=== PATIENT | female | born 1995 | race American Indian/Alaskan Native ===

== ENCOUNTER 2017-09-05 09:25 | Emergency (ER) | payer OTHER ==
[2017-09-05 09:31] VITALS: BP 111/75; RESP 16; TEMP 98.1; BMI 28.1
--- NOTE | 2017-09-05 09:40 | ED PDOC ---
Arrival/HPI - General Chief Complaint: ENT Problem Time Seen by Provider: 09/05/17 09:39 Historian: Patient - History of Present Illness Narrative History of Present Illness (Text): 09/05/17 09:39 This 21 yo female who denies pmh, presents to this ED c/o right ear pain, sore throat, and nasal congestion x 1 day. Patient denies recent travel, sick contact, abdominal pain, cough, sob, hemoptysis, n/v, fever, skin rash, or abnormal gait. Time/Duration: Other (see hpi) Context: Home Past Medical History - Provider Review Nursing Documentation Reviewed: Yes - Psychiatric Hx Substance Use: No - Surgical History Other/Comment: right wrist Family/Social History - Physician Review Nursing Documentation Reviewed: Yes Family/Social History: Other (noncontributory) Smoking Status: Never Smoked Hx Alcohol Use: No Hx Substance Use: No Allergies/Home Meds Allergies/Adverse Reactions: Allergies almond Allergy (Verified 09/05/17 09:32) ITCHING carrot Allergy (Verified 09/05/17 09:32) ITCHING celery Allergy (Verified 09/05/17 09:32) ITCHING Review of Systems - Review of Systems Constitutional: Normal. absent: Fatigue, Weight Change, Fevers, Night Sweats Eyes: Normal ENT: Sore Throat, Rhinorrhea, Other (right ear pain) Respiratory: Normal. absent: SOB, Cough, Sputum, Wheezing Cardiovascular: Normal Gastrointestinal: Normal Genitourinary Female: Normal Musculoskeletal: Normal Skin: Normal Neurological: Normal Endocrine: Normal Hemo/Lymphatic: Normal Psychiatric: Normal Physical Exam Vital Signs Temp Pulse Resp BP Pulse Ox 09/05/17 09:28 98.1 F 86 16 111/75 97 Temperature: Afebrile Blood Pressure: Normal Pulse: Regular Respiratory Rate: Normal Appearance: Positive for: Well-Appearing, Non-Toxic, Comfortable Pain Distress: None Mental Status: Positive for: Alert and Oriented X 3 - Systems Exam Head: Present: Atraumatic, Normocephalic. No: Tenderness Pupils: Present: PERRL Extroacular Muscles: Present: EOMI Conjunctiva: Present: Normal Mouth: Present: Moist Mucous Membranes Pharnyx: Present: ERYTHEMA. No: EXUDATE, TONSILS ENLARGED, Peritonsilar Swelling, Uvular Deviation, Muffled/Hoarse Voice, Strider, Soft Palate/Uvular Edema Neck: Present: Normal Range of Motion Respiratory/Chest: Present: Clear to Auscultation, Good Air Exchange. No: Respiratory Distress, Accessory Muscle Use Cardiovascular: Present: Regular Rate and Rhythm, Normal S1, S2. No: Murmurs Abdomen: No: Normal Bowel Sounds Back: Present: Normal Inspection. No: CVA Tenderness Upper Extremity: Present: Normal Inspection, Normal ROM. No: Cyanosis, Edema Lower Extremity: Present: Normal Inspection, Normal ROM. No: Edema Neurological: Present: GCS=15, CN II-XII Intact, Speech Normal, Motor Func Grossly Intact, Normal Sensory Function, Normal Cerebellar Funct, Gait Normal Skin: Present: Warm, Dry, Normal Color. No: Rashes Psychiatric: Present: Alert, Oriented x 3, Normal Insight, Normal Concentration Medical Decision Making ED Course and Treatment: 09/05/17 10:23 Patient remained stable during the course of ED visit. Lungs CTA b/l. Patient requesting ABX, and for congestion. I recommended to f/u PMD on Thursday. She also requested to have Thursday Off from work. Patient is agreeable to be discharge, and she understood plan. Re-evaluation Time: 10:26 Reassessment Condition: Re-examined, Improved - Lab Interpretations Lab Results: Lab Results 09/05/17 10:10: Grp A Beta Strep Ag Negative Disposition/Present on Arrival - Present on Arrival Any Indicators Present on Arrival: No History of DVT/PE: No History of Uncontrolled Diabetes: No Urinary Catheter: No History of Decub. Ulcer: No History Surgical Site Infection Following: None - Disposition Have Diagnosis and Disposition been Completed?: Yes Diagnosis: URI (upper respiratory infection) Disposition: HOME/ ROUTINE Disposition Time: 10:27 Patient Plan: Discharge Patient Problems: Current Active Problems Problem Status Onset URI (upper respiratory infection) Acute Condition: GOOD Discharge Instructions (ExitCare): Upper Respiratory Infection (ED) Additional Instructions: Call private doctor office for follow up visit on Thursday. Take medication as instructed if symptoms worsen, cough, or shortness of breath. Return to emergency as needed. Do not drive or operate machinery when you are taking cough medication Prescriptions: Azithromycin [Z-Rivera] 250 mg PO DAILY #6 tab Ibuprofen [Motrin] 600 mg PO Q8 PRN #20 tab PRN Reason: Pain, Severe (8-10) Promethazine [Phenergan Syrup] 5 ml PO Q4H PRN #120 ml PRN Reason: Cough Referrals: Walker Wolfe MD [Family Provider] - Follow up with primary Forms: Where Was it Filmed (Ukrainian), WORK NOTE
[2017-09-05 10:49] VITALS: PULSE 84; O2SAT 99
== END 2017-09-05 10:48 | disposition home or self-care (01) ==
LOC: ED 09:25
DX: J06.9 Acute upper respiratory infection, unspecified (principal)